=== PATIENT | male | born 1950 | race Caucasian/White ===

== ENCOUNTER 2017-03-10 14:53 | Day surgery (SDC) | payer BC ==
--- NOTE | 2017-03-11 13:10 | Operative Note ---
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 POSTOPERATIVE DIAGNOSIS: Malignancy of bladder and left ureter. OPERATION: Cystoscopy. Anesthesia: Local. Indication: A 66-year-old male previously followed by Dr. Stiles who presents for his yearly scheduled surveillance cystoscopy. PROCEDURE: Preop informed consent was obtained. Antibiotics were given. The patient was brought to the procedure room at [facility], placed supine, and flexible cystoscopy was carried out. The anterior urethra appears unremarkable. Prostate was entered. Appears somewhat obstructive with lateral lobes as well as a small area of poorly resected prostatic tissue near the bladder neck. The bladder was then emptied and inspected systematically. There was no evidence of any recurrent tumor in the urothelium. The left ureteral orifice appears surgically absent. The right side was rapidly effluxing clear urine. The scope was retroflexed. Again, no evidence of any recurrence and the scope was then carefully withdrawn. The procedure was terminated. The patient tolerated quite well. PLAN: The patient is going to follow up in 1 year for his next surveillance. He is currently taking Flomax to help with his voiding symptoms and will contact me if that is not satisfactory, as he could explore some surgical options as well. Rocco Salinas M.D. CC: Dr. Natali VASQUEZ
== END 2017-03-10 15:00 | disposition home or self-care (01) ==
LOC: HOP 14:53
PROVIDERS: ATTEND Urology
DX: Z85.51 Personal history of malignant neoplasm of bladder (principal)

== ENCOUNTER 2018-02-08 14:20 | Emergency (ER) | payer BC, MEDICARE ==
[2018-02-08] MEDS ORDERED: IPRATROPIUM/ALBUTEROL (0.5MG/3MG) NEB INH ONE (14:31)
[2018-02-08] MEDS ORDERED: CEFTRIAXONE SODIUM 1 GM in 0.9 % SODIUM CHLORIDE 100ML 100 ML IVPB ONE (14:31)
[2018-02-08] MEDS ORDERED: METHYLPREDNISOLONE PF 125MG/VIAL IVP ONE (14:31)
--- NOTE | 2018-02-08 14:38 | Emergency Department Record ---
History of Present Illness - General Chief Complaint: Difficulty Breathing Stated Complaint: DX PNEUMONIA 02/04/18, FEELING WORST Time Seen by Provider: 02/08/18 14:24 Source: Patient, Family Mode of Arrival: Ambulatory Limitations: No limitations - History of Present Illness Initial Comments: 67 yo male presents with increasing cough and shortness of breath. He states this has been progressive over the last week. His cough is productive. No blood. He is a smoker. He did see his PCP last . He states lab tests and CXR were preformed. He was told he had pneumonia. He was started on Zithromax. He reports his cough and shortness of breath are worse. No chest pain or leg swelling. He does have palpitations at times. NO history of CAD or PE. He does have PAD. PCP is in Dr Irasema Treviño. On arrival his room air oxygen level is 85-88%. MD Complaint: Cough, Shortness of breath -: Days(s) (5) Severity: Moderate Consistency: Constant Improves With: Rest Worsens With: Coughing, Exertion, Movement Known History Of: Recurrent pneumonia Context: Recent URI Associated Symptoms: Cough Treatments Prior to Arrival: Other (antibiotics) - Related Data Home Medications Medication Instructions Recorded Confirmed Last Taken Albuterol Sulfate [Ventolin Hfa] 1 - 2 puff IH .EVERY 4-6 HOURS PRN 02/08/1802/08/18 Azithromycin 250 mg PO DAILY 02/08/18 02/08/18 02/08/18 Benzonatate 200 mg PO Q6H 02/08/18 02/08/18 02/08/18 Clopidogrel Bisulfate [Plavix] 75 mg PO DAILY 02/08/18 02/08/18 02/08/18 Enalapril Maleate 20 mg PO DAILY 02/08/18 02/08/18 02/04/18 Gabapentin [Neurontin] 300 mg PO Q6H 02/08/18 02/08/18 02/08/18 Hydrocodone/Acetaminophen [Gleason 7.5 mg PO Q6H 02/08/18 02/08/18 02/08/18 7.5-325 Tablet] Lovastatin 40 mg PO DAILY 02/08/18 02/08/18 02/08/18 Methadone HCl 10 mg PO TID 02/08/18 02/08/18 02/08/18 Sertraline HCl [Zoloft] 50 mg PO DAILY 02/08/18 02/08/18 02/08/18 Tamsulosin HCl [Flomax] 0.4 mg PO DAILY 02/08/18 02/08/18 02/08/18 Trazodone HCl 100 mg PO BID 02/08/18 02/08/18 02/08/18 Verapamil HCl [Verapamil ER] 120 mg PO DAILY 02/08/18 02/08/18 02/04/18 Allergies Allergy/AdvReac Type Severity Reaction Status Date / Time levofloxacin [From LEVAQUIN] Allergy Unknown HIVES Verified 02/08/18 14:34 Review of Systems Constitutional: Reports: Malaise. Denies: Fever, Weakness Eyes: Denies: Eye discharge, Eye pain, Photophobia, Vision change ENT: Reports: Congestion. Denies: Dental pain, Ear pain, Throat pain Respiratory: Reports: Cough, Dyspnea. Denies: Hemoptysis, Stridor, Wheezes Cardiovascular: Denies: Chest pain, Palpitations, Syncope Endocrine: Denies: Fatigue, Polydipsia, Polyuria Gastrointestinal: Denies: Abdominal pain, Diarrhea, Nausea, Vomiting Genitourinary: Denies: Dysuria, Frequency, Hematuria Musculoskeletal: Denies: Arthralgia, Back pain, Joint swelling, Myalgia, Neck pain Skin: Denies: Bruising, Change in color, Rash Neurological: Denies: Headache, Numbness, Weakness Psychiatric: Denies: Anxiety Hematological/Lymphatic: Denies: Blood Clots, Easy bleeding, Easy bruising, Swollen glands Past Medical History - SOCIAL HISTORY Smoking Status: Current every day smoker - RESPIRATORY Hx Respiratory Disorders: Yes Hx Sleep Apnea: Yes Hx of CPAP: No - CARDIOVASCULAR Hx Cardio Disorders: Yes Hx Chest Pain: Yes (in March per report from vascular surgeon) Hx Hypertension: Yes Hx Vascular Disease: Yes Hx Coronary Stent: Yes ( maker(1999), AAA) Comment:: high cholesterol - NEURO Hx Neuro Disorders: Yes Hx Neuropathy: Yes (back, BLE) - GI Hx GI Disorders: No Comment:: ? adhesions/constipation - Hx Genitourinary Disorders: Yes Hx Bladder Problem: Yes (baldder, kidney, & ureter cancer) - ENDOCRINE Hx Endocrine Disorders: No - MUSCULOSKELETAL Hx Musculoskeletal Disorders: Yes Hx Back Injury: Yes (fell 14 feet) - PSYCH Hx Psych Problems: Yes Hx Depression: Yes - HEMATOLOGY/ONCOLOGY Hx Hematology/Oncology Disorders: Yes Hx Cancer: Yes (bladder, L kidney & ureter) Hx Chemotherapy: Yes (BCG-last 1 year ago) Hx Radiation Therapy: No Family Medical History Hx Cancer: Grandparents *Cancer Comment: bladder, lung Hx Diabetes: Father Hx Heart Disease: Father, Mother, Grandparents Hx HTN: Father Hx Resp Disorders: Mother Physical Exam - General General Appearance: Alert, Oriented x3, Cooperative, No acute distress Limitations: No limitations - Head Head exam: Atraumatic, Normal inspection - Eye Eye exam: Normal appearance. negative: Conjunctival injection, Periorbital swelling, Scleral icterus Pupils: Normal accommodation - ENT ENT exam: Normal exam, Mucous membranes moist, Normal external ear exam, Normal orophraynx, TM's normal bilaterally Ear exam: Normal external inspection. negative: External canal tenderness Nasal Exam: Normal inspection. negative: Discharge, Sinus tenderness Mouth exam: Normal external inspection, Tongue normal Teeth exam: Normal inspection Throat exam: Normal inspection. negative: Tonsillar erythema, Tonsillomegaly, Tonsillar exudate, R peritonsillar mass, L peritonsillar mass - Neck Neck exam: Normal inspection - Respiratory Respiratory exam: Decreased breath sounds, Prolonged expiratory, Rhonchi, Wheezes. negative: Normal lung sounds bilaterally, Chest wall tenderness, Rales , Respiratory distress, Stridor - Cardiovascular Cardiovascular Exam: Regular rate, Normal rhythm, Normal heart sounds Peripheral Pulses: 2+: Radial (R), Radial (L) - GI/Abdominal GI/Abdominal exam: Soft. negative: Tenderness - Rectal Rectal exam: negative: Deferred - exam: negative: Deferred - Extremities Extremities exam: Normal inspection, Full ROM, Normal capillary refill. negative: Calf tenderness, Joint swelling, Pedal edema, Tenderness - Back Back exam: Reports: Normal inspection. Denies: CVA tenderness (R), CVA tenderness (L) - Neurological Neurological exam: Alert, Normal gait, Oriented X3. negative: Altered - Psychiatric Psychiatric exam: Normal affect, Normal mood - Skin Skin exam: Dry, Intact, Normal color, Warm Course - Reevaluation(s) Reevaluation #1: 02/08/18 14:38 Room air pulse ox 85-88% RT notified for nebulized treatment and ekg 02/08/18 14:44 ekg 1438 nsr rate 91 intervals normal, axis normal, ST T wave inversion V1,V2, V3. No old. ekg #1 at 1436 nsr rate 87, intervals normal, axis normal ST T wave inversion. artifact. New T wave inversion V1-3. 02/08/18 15:30 Inluenza negative CBC reviewed. No acute changes 02/08/18 15:46 The CMP was reviewed. No significant changes. Normal renal function The Troponin is elevated to the indeterminate range at 0.044 The BNP is elevated at 4443 02/08/18 15:58 The patient is doing much better. 94% on 2 LNC. Awaiting CXR report. 02/08/18 16:29 The CXR was read as a infiltrate vs mass. CT scan of the chest was ordered. 02/08/18 18:40 Kyle Ritter of [facility] She accept the patient for work up of the chest mass that is new with the pneumonia The patient is stable for transfer Medical Decision Making - Lab Data Result diagrams: 02/08/18 14:55 02/08/18 14:55 Disposition Disposition: Transfer Clinical Impression: Pneumonia, Chest mass, Elevated troponin Disposition: Acute Care Hospital Transfer Transfer To: [facility] Reason For Transfer: Chest mass, pneumonia Accepting Physician: Stone Time Discussed w/Accepting Physician: 18:40 Condition: (2) Stable Forms: Patient Portal Access Time of Disposition: 18:40 Quality - Quality Measures Quality Measures: N/A - Blood Pressure Screening Does Patient Have Any of the Following: Active Dx of HTN Blood Pressure Classification: Pre-Hypertensive BP Reading Systolic Measurement: 137 Diastolic Measurement: 73 Screening for High Blood Pressure: Patient Exclusion, Hx of HTN [G9744]
[2018-02-08] MEDS ORDERED: ASPIRIN 81 MG CHEWABLE TABLET PO ONE (14:43)
[2018-02-08 15:08] LABS: HEMATOCRIT 38.8 % (42.0-52.0); HEMOGLOBIN 13.1 gm/dl (14.0-18.0); MEAN CELL VOLUME 83.1 fl (81-97); MEAN CORPUSCULAR HGB CONC 33.8 g/dl (32-36); PLATELET COUNT 436 K/uL (130-400); RED BLOOD COUNT 4.67 M/uL (4.40-5.70); RED CELL DISTRIBUTION WIDTH 14.6 % (11.5-14.5); WHITE BLOOD COUNT W/O DIFF 10.7 K/uL (4.2-12.2)
[2018-02-08 15:18] LABS: BLOOD UREA NITROGEN 26 mg/dL (8-23); CREATININE 0.9 mg/dL (0.7-1.2); EST GLOMERULAR FILTRATION RATE > 60 mL/min
[2018-02-08 15:19] LABS: INFLUENZA A NEGATIVE (NEGATIVE); INFLUENZA B NEGATIVE (NEGATIVE)
[2018-02-08 15:19] LABS: TOTAL PROTEIN 7.4 g/dL (6.6-8.7)
[2018-02-08 15:21] LABS: GLUCOSE,RANDOM 120 mg/dL (74-109)
[2018-02-08 15:23] LABS: ALB/GLOB RATIO 0.8 (1.1-1.8); ALBUMIN 3.3 g/dL (4.0-5.0); ALT/SGPT 19 U/L (<41); AST/SGOT 30 U/L (10.0-50.0)
[2018-02-08 15:24] LABS: ALKALINE PHOSPHATASE 133 U/L (40-129)
--- NOTE | 2018-02-09 14:32 | RADIOLOGY REPORT ---
EXAM: CHEST, TWO VIEWS HISTORY: COUGH, DIFFICULTY IN BREATHING AND FEVER. TECHNIQUE: Upright PA and lateral views of the chest were obtained. Comparison: Two view chest radiographic examination dated 07/04/14. FINDINGS: The heart is not enlarged. There is mass like opacity in the superior right hilar region measuring 7 x 7 cm with mixed reticular and alveolar opacities with the alveolar opacities also scattered in the mid and lower right lung. Mild reticulonodular opacity prominence with interspersed ground glass opacities also noted in the left lung base. No costophrenic angle blunting or pneumothorax. No definite lytic or blastic bone lesion is seen. There are mild degenerative changes of the spine. IMPRESSION: MASS LIKE OPACITY IN THE SUPERIOR RIGHT HILAR REGION MEASURING 7 CM IN DIAMETER. IT IS INDETERMINATE WHETHER THIS IS AN INFLAMMATORY MASS/ CONSOLIDATION OR MALIGNANCY. ADDITIONALLY THERE ARE MIXED RETICULAR AND ALVEOLAR OPACITIES SCATTERED IN THE MID AND LOWER RIGHT LUNG WELL THE LEFT BASE CONSISTENT WITH INFILTRATE OR EDEMA. UNDERLYING INFILTRATE OR NEOPLASM MOST LIKELY. JOB NUMBER: [id number] [facility] [place] [facility]
--- NOTE | 2018-02-09 15:02 | CT ANGIOGRAM REPORT ---
EXAM: CT ANGIOGRAM OF THE CHEST HISTORY: DIFFICULTY IN BREATHING. FEVER. ABNORMAL LUNG OPACITIES ON SAME DAY RADIOGRAPHIC EXAMINATION. TECHNIQUE: Routine CT angiogram of the chest was performed with 80 ml of Omnipaque 350 utilized. Coronal and sagittal maximum intensity projection reformatted images are generated and reviewed. Comparison: Same day two view chest radiographic examination. FINDINGS: As demonstrated on same day radiographic examination, there is a large mass like area involving the superior right hilum appearing to encase vasculature. This measures approximately 6 cm craniocaudad x 7 cm AP x 6 cm transverse. There is associated cut off of the upper lobe bronchus and there is contiguous right paratracheal adenopathy which measures approximately 6 cm craniocaudad x 3.1 cm AP x 4.5 cm transverse. Additionally, there is prevascular/superior mediastinal adenopathy with that on the right measuring 2.6 cm in maximum diameter and that on the left measuring 2.4 cm. There is also adenopathy in the right supraclavicular/right neck base region measuring 2.5 x 2.1 cm. There is mild adenopathy in the inferior right hilum. Diffuse alveolar opacities are noted in the right upper lobe primarily in the posterior segment with mixed reticulonodular opacities in the anterior and apical segments. Mixed reticular and ground glass opacities are noted within the right middle lobe and lingula. There is minor dependent atelectasis in each lung base. Diffuse bilateral emphysema. Opacification of the pulmonary arteries is satisfactory for interpretation. No luminal filling defect is noted in the outflow tract, main arteries, lobar arteries, or proximal segmental arteries to suggest acute pulmonary embolic disease though there is encasement of the proximal right upper lobe arteries which appear mildly compressed. There is diffuse atherosclerosis of the coronary arteries. There is diffuse atherosclerosis of the thoracic aorta and arch branch vessels without focal aneurysmal dilatation nor dissection. There is a small right adrenal gland mass of indeterminate etiology with metastatic disease not excluded. This measures 1.2 x 1.7 cm. There is mild nodularity of the left adrenal gland also nonspecific measuring 1.2 x 0.9 cm. No lytic or blastic bone lesion. Left nephrectomy changes are present. No definite suspicious mass visualized in this region though there is evidence of fat necrosis/scarring. IMPRESSION: 1. LARGE RIGHT SUPRAHILAR MASS INVOLVING THE CENTRAL RIGHT UPPER LOBE WITH BRONCHUS CUFF OFF, PRESUMED POST OBSTRUCTIVE PNEUMONIA, MEDIASTINAL AND RIGHT SUPRACLAVICULAR METASTATIC ADENOPATHY. 2. NO PULMONARY EMBOLIC DISEASE. 3. AIR SPACE OPACITIES WITHIN THE RIGHT MIDDLE LOBE AND LINGULA SUSPICIOUS FOR PNEUMONIA. 4. SMALL RIGHT ADRENAL GLAND MASS AND MILD NODULARITY OF THE LEFT ADRENAL GLAND OF INDETERMINATE ETIOLOGY WITH METASTATIC DISEASE NOT EXCLUDED. J[facility] NUMBER: [id number] [facility]
== END 2018-02-08 18:48 | disposition short-term general hospital (02) ==
LOC: ER 14:20
DX: J18.9 Pneumonia, unspecified organism (principal); R79.89 Other specified abnormal findings of blood chemistry; R91.8 Other nonspecific abnormal finding of lung field; I10 Essential (primary) hypertension; F17.210 Nicotine dependence, cigarettes, uncomplicated; Z85.51 Personal history of malignant neoplasm of bladder; Z85.528 Personal history of other malignant neoplasm of kidney; Z85.54 Personal history of malignant neoplasm of ureter
CPT/HCPCS: 99285 ×2; 96365; 96375; 80053; 87400; 84484; 85027; 83880; 71046; 71275; 94640; 93005; 93010; Q9967; J2930